=== PATIENT | female | born 2000 | race Two or more races ===

== ENCOUNTER 2023-09-15 13:46 | Emergency (ER) | payer MEDICAID, OTHER ==
[~2023-09-15] VITALS: Ht 160 cm; Wt 58.9 kg
[2023-09-15 18:53] VITALS: BP 105/75; PULSE 86; RESP 18; O2SAT 90
[2023-09-15] MEDS ORDERED: ACET500T58 PO (20:37)
== END 2023-09-15 21:30 | disposition home or self-care (01) ==
LOC: ER 13:46
DX: S50.01XA Contusion of right elbow, initial encounter (principal); V00.131A Fall from skateboard, initial encounter; Y93.23 Activity, snow (alpine) (downhill) skiing, snowboarding, sledding, tobogganing and snow tubing; Y92.89 Other specified places as the place of occurrence of the external cause; Y99.8 Other external cause status
CPT/HCPCS: 73080